=== PATIENT | female | born 1955 | race Caucasian/White ===

== ENCOUNTER 2018-03-23 06:19 | Day surgery (SDC) | payer OTHER ==
[2018-03-23] MEDS ORDERED: MIDAZOLAM 1 MG/ML 2 ML INJ (09:31)
[2018-03-23] MEDS ORDERED: FENTAnyl 50 MCG/ML VIAL (09:31)
== END 2018-03-23 10:20 | disposition home or self-care (01) ==
LOC: GIL 06:19
DX: Z12.11 Encounter for screening for malignant neoplasm of colon (principal); D12.6 Benign neoplasm of colon, unspecified; K64.8 Other hemorrhoids; E78.5 Hyperlipidemia, unspecified
CPT/HCPCS: 45380; 88305